=== PATIENT | female | born 1975 | race Caucasian/White ===

== ENCOUNTER → 2019-09-09 | Outpatient (REF) | payer OTHER ==
[~2019-09-09] MED LIST: ALTA5CAP PO; COLA100C2 OR; CYMB1CAP5 PO; IRON325T3 PO; LOPR50TA PO; LOVE1INJ SC; MAALSUS OR; OMEP20TA7 PO; PERC5TAB8 OR; PRENTAB74 PO
== END ==
LOC: M SFHCLERA 16:11
PROVIDERS: ATTEND Nurse Practitioner Family
DX: J02.9 Acute pharyngitis, unspecified (principal)

== ENCOUNTER → 2020-01-15 | Outpatient (REF) | payer OTHER | LOC: M SFHCLERA 12:26 | PROVIDERS: ATTEND Physician Assistant | DX: J03.90 Acute tonsillitis, unspecified (principal) ==